=== PATIENT | female | born 1995 | race Caucasian/White ===

== ENCOUNTER 2019-02-04 21:41 | Emergency (ER) | payer SELFPAY ==
--- NOTE | 2019-02-05 00:52 | ER Document Report ---
ED Medical Screen (RME) - General Chief Complaint: Vaginal Bleeding Stated Complaint: CRAMPING,VAGINAL BLEEDING Time Seen by Provider: 02/05/19 00:49 Notes: 23-year-old female, chief complaint of sharp intermittent pelvic pain with radiation to the back, reports intermittent spotting as well. States that she has had some body changes which makes her think she might be . Not on control. Reports she was told that she might have PCOS in the past but she has "never had a cyst". She denies fever/chills, abnormal discharge, dysuria. TRAVEL OUTSIDE OF THE [place] IN LAST 30 DAYS: No - Related Data Allergies/Adverse Reactions: shellfish derived Allergy (Verified 02/04/19 21:50) Physical Exam - Vital signs Vitals: Temp Pulse Resp BP Pulse Ox 98.3 F 78 16 168/90 H 96 02/04/19 22:00 02/04/19 22:00 02/04/19 22:00 02/04/19 22:00 02/04/19 22:00 - General General appearance: Appears well In distress: None - Abdominal Tenderness: Tender - Some generalized lower abdominal/pelvic tenderness, exam limited by sitting position Course - Re-evaluation Re-evalutation: I have greeted and performed a rapid initial assessment of this patient. A comprehensive ED assessment and evaluation of the patient, analysis of test results and completion of the medical decision making process will be conducted by additional ED providers. - Vital Signs Vital signs: Temp Pulse Resp BP Pulse Ox 98.3 F 78 16 168/90 H 96 02/04/19 22:00 02/04/19 22:00 02/04/19 22:00 02/04/19 22:00 02/04/19 22:00
--- NOTE | 2019-02-05 02:00 | RADIOLOGY REPORT (SQ) ---
US PELVIS HISTORY: Pelvic pain. COMPARISON: None. TECHNIQUE: Grayscale, color Doppler, and spectral Doppler ultrasound images of the pelvis were obtained. FINDINGS: The uterus is anteverted and measures 6.8 x 5.0 x 3.4 cm. The endometrium is 6 mm in thickness. The cervix measures 2.7 cm in length. Both ovaries are normal, with the right measuring 3.5 x 2.6 x 3.0 cm and the left measuring 4.1 x 2.6 x 2.3 cm. Normal color Doppler blood flow is seen in both ovaries. No pelvic free fluid is seen. IMPRESSION: Unremarkable pelvic ultrasound.
[2019-02-05 02:39] LABS: ABSOLUTE BASOPHILS # (AUTO) 0.1 10^3/uL (0.0-0.2); ABSOLUTE EOSINOPHILS # (AUTO) 0.3 10^3/uL (0.0-0.6); ABSOLUTE LYMPHOCYTES (AUTO) 4.1 10^3/uL (0.5-4.7); ABSOLUTE MONOCYTES (AUTO) 0.9 10^3/uL (0.1-1.4); ABSOLUTE NEUT (AUTO) 4.7 10^3/uL (1.7-8.2); BASOPHILS % (AUTO) 0.6 % (0-2); EOSINOPHILS % (AUTO) 3.3 % (0-6); HEMATOCRIT 40.2 % (36.0-47.0); HEMOGLOBIN 13.6 g/dL (12.0-15.5); LYMPHOCYTES % (AUTO) 40.6 % (13-45); MEAN CORPUSCULAR HEMOGLOBIN 29.6 pg (27.0-33.4); MEAN CORPUSCULAR HGB CONC 33.8 g/dL (32.0-36.0); MEAN CORPUSCULAR VOLUME 88 fl (80-97); PLATELET COUNT 302 10^3/uL (150-450); RED BLOOD COUNT 4.59 10^6/uL (3.72-5.28); RED CELL DISTRIBUTION WIDTH 13.3 % (11.5-14.0); SEGMENTED NEUTROPHILS % (AUTO) 46.5 % (42-78); TOTAL CELLS COUNTED % (AUTO) 100 %; WHITE BLOOD COUNT 10.1 10^3/uL (4.0-10.5)
[2019-02-05 02:57] LABS: APPEARANCE,URINE SLIGHTLY-CLOUDY; BILIRUBIN,URINE NEGATIVE (NEGATIVE); COLOR,URINE YELLOW; GLUCOSE, URINE NEGATIVE (NEGATIVE); KETONES,URINE NEGATIVE (NEGATIVE); LEUKOCYTE ESTERASE,URINE NEGATIVE (NEGATIVE); NITRITE,URINE NEGATIVE (NEGATIVE); PROTEIN,URINE NEGATIVE (NEGATIVE); URINE SPECIFIC GRAVITY 1.029
[2019-02-05 02:58] LABS: ANION GAP 8 (5-19); BLOOD UREA NITROGEN 12 mg/dL (7-20); CALCIUM 9.8 mg/dL (8.4-10.2); CARBON DIOXIDE 26 mmol/L (22-30); CHLORIDE 110 mmol/L (98-107); GLUCOSE 80 mg/dL (75-110); POTASSIUM 4.5 mmol/L (3.6-5.0); SODIUM 144.2 mmol/L (137-145)
[2019-02-05] MEDS ORDERED: KETOROLAC TROMETHAMINE 60 MG/2 ML SDV IM ONE (03:13)
--- NOTE | 2019-02-05 03:15 | ER Document Report ---
ED GI/ - General Chief Complaint: Vaginal Bleeding Stated Complaint: CRAMPING,VAGINAL BLEEDING Time Seen by Provider: 02/05/19 00:49 Primary Care Provider: NOHEMY WYNN MD [ACTIVE STAFF] - Follow up as needed Notes: Patient is a 23-year-old female, chief complaint of sharp intermittent pelvic pain with radiation to the back, reports intermittent spotting as well. States that she has had some body changes which makes her think she might be . Not on control. Reports she was told that she might have PCOS in the past but she has "never had a cyst". She denies fever/chills, abnormal discharge, d ysuria. TRAVEL OUTSIDE OF THE [place] IN LAST 30 DAYS: No - Related Data Allergies/Adverse Reactions: shellfish derived Allergy (Verified 02/04/19 21:50) Past Medical History - General Information source: Patient - Social History Smoking Status: Never Smoker Frequency of alcohol use: None Drug Abuse: None Lives with: Family Family History: Reviewed & Not Pertinent Patient has suicidal ideation: No Patient has homicidal ideation: No - Medical History Medical History: Negative Renal/ Medical History: Denies: Hx Peritoneal Dialysis Surgical Hx: Negative - Immunizations Immunizations up to date: Yes Hx Diphtheria, Pertussis, Tetanus Vaccination: Yes Review of Systems - Review of Systems Constitutional: No symptoms reported EENT: No symptoms reported Cardiovascular: No symptoms reported Respiratory: No symptoms reported Gastrointestinal: See HPI Genitourinary: See HPI Female Genitourinary: See HPI Musculoskeletal: No symptoms reported Skin: No symptoms reported Hematologic/Lymphatic: No symptoms reported Neurological/Psychological: No symptoms reported Physical Exam - Vital signs Vitals: Temp Pulse Resp BP Pulse Ox 98.3 F 78 16 168/90 H 96 02/04/19 22:00 02/04/19 22:00 02/04/19 22:00 02/04/19 22:00 02/04/19 22:00 - Notes Notes: GENERAL: Alert, interacts well. No acute distress. HEAD: Normocephalic, atraumatic. EYES: Pupils equal, round, and reactive to light. Extraocular movements intact. ENT: Oral mucosa moist, tongue midline. Oropharynx unremarkable. Airway patent. NECK: Full range of motion. Supple. Trachea midline. LUNGS: Clear to auscultation bilaterally, no wheezes, rales, or rhonchi. No respiratory distress. HEART: Regular rate and rhythm. No murmur ABDOMEN: Nontender abdomen on reevaluation. No distention. Normal bowel sounds. No guarding or rigidity. GENITOURINARY: Deferred EXTREMITIES: Moves all 4 extremities spontaneously. No edema, normal radial and dorsalis pedis pulses bilaterally. No cyanosis. BACK: no cervical, thoracic, lumbar midline tenderness. No saddle anesthesia, normal distal neurovascular exam. NEUROLOGICAL: Alert and oriented x3. Normal speech. PSYCH: Normal affect, normal mood. SKIN: Warm, dry, normal turgor. No rashes or lesions noted. Course - Re-evaluation Re-evalutation: Alert and well-appearing patient. At bedside on exam abdomen is completely benign. Patient is not complaining of any current symptoms except intermittently she feels a cramping with the bleeding she is having. She reports mild menstrual bleeding. Ultrasound is unremarkable, laboratory work-up is unremarkable, I discussed this in detail with patient. Negative test. Patient states that she is pleased with these findings, states she will follow-up with primary care, requesting to leave. Discussed return precautions. Stable at time of discharge. - Vital Signs Vital signs: Temp Pulse Resp BP Pulse Ox 98.4 F 78 18 159/86 H 100 02/05/19 03:23 02/05/19 03:23 02/05/19 03:23 02/05/19 03:23 02/05/19 03:23 - Laboratory Result Diagrams: 02/05/19 02:27 02/05/19 02:27 Laboratory results interpreted by me: 02/05/19 02/05/19 02:27 02:27 Chloride 110 H Urine Blood LARGE H Urine Urobilinogen 2.0 H Discharge - Discharge Clinical Impression: Vaginal bleeding Abdominal pain Qualifiers: Abdominal location: lower abdomen, unspecified Qualified Code(s): R10.30 - Lower abdominal pain, unspecified Condition: Stable Disposition: HOME, SELF-CARE Additional Instructions: Your ultrasound does not show any concerning findings, you have an anteverted uterus. Your work-up does not show any concerning findings as well. Take prescribed medication if needed for cramping/pain, follow-up with primary care for additional evaluation and management. See referral. Return if you worsen including severe worsening pain, vomiting, fever, or any other concerning symptoms. Prescriptions: Naproxen 500 mg PO BID PRN #20 tablet PRN Reason: Forms: Treatment of Relative/Child Referrals: NOHEMY WYNN MD [ACTIVE STAFF] - Follow up as needed
[2019-02-05 03:26] VITALS: BP 159/86
== END 2019-02-05 03:28 | disposition home or self-care (01) ==
LOC: ER 21:41
DX: N93.8 Other specified abnormal uterine and vaginal bleeding (principal); R10.30 Lower abdominal pain, unspecified; R10.2 Pelvic and perineal pain; Z91.013 Allergy to seafood
CPT/HCPCS: 36415; 76830; 80048; 81001; 84703; 85025; 93976; 99284